=== PATIENT | female | born 1990 | race Caucasian/White ===

== ENCOUNTER 2019-01-14 11:33 | Inpatient (IN) ==
[2019-01-14 12:24] LABS: Basophils % 0.3 %; Eosinophils # 0.1 K/mcL (0.0-0.6); Eosinophils % 0.9 %; Hematocrit 36.2 % (35.3-44.9); Hemoglobin 11.9 g/dL (11.5-15.4); Immature Granulocytes % 1.1 % (0-4); Lymphocytes % 17.6 %; Mean Corpuscular HGB Conc 32.9 g/dL (31.6-35.5); Mean Corpuscular Hemoglobin 28.6 pg (28.0-33.3); Mean Platelet Volume 10.8 fL (9.4-12.4); Monocytes # 0.8 K/mcL (0.0-1.3); Monocytes % 7.2 %; Neutrophils # 8.2 K/mcL (1.6-8.9); Platelet Count 220 K/mcL (140-400); Red Blood Count 4.16 M/mcL (3.82-4.97); Red Cell Distribution Width 12.7 % (11.5-14.5); Segmented Neutrophils % 72.9 %
[2019-01-14 12:28] LABS: Amphetamine Screen,Urine Negative ng/mL (Cutoff=1000); Barbiturate Screen,Urine Negative ng/mL (Cutoff=200); Benzodiazepines Screen,Urine Negative ng/mL (Cutoff=200); Cannabinoid Screen,Urine Negative ng/mL (Cutoff = 50); Cocaine Screen,Urine Negative ng/mL (Cutoff= 300); Creatinine,Urine 99 mg/dL; Opiate Screen,Urine Negative ng/mL (Cutoff=300); Phencyclidine Screen,Urine Negative ng/mL (Cutoff=25); Protein/Creatinine Ratio,Urine 0.39 mg/mg (0.00-0.20)
[2019-01-14] MEDS ORDERED: *HR* Labetalol 20 MG/4 ML SYRINGE IVP ONE ×2 (12:32→18:58)
[2019-01-14 12:37] LABS: Alanine Aminotransferase 12 Units/L (7-52); Aspartate Amino Transferase 12 Units/L (13-39); BUN/Creatinine Ratio 19 (6-26); Blood Urea Nitrogen 7 mg/dL (6-20); Glucose 72 mg/dL (70-105); Lactate Dehydrogenase 129 Units/L (140-271); Uric Acid 3.2 mg/dL (2.3-7.6); eGFR For Non-African Americans > 60 (> 60)
[2019-01-14] MEDS ORDERED: NIFEdipine 10 MG CAPSULE PO ONE (12:39)
[2019-01-14] MEDS ORDERED: *HR* Nalbuphine 10 MG/ML AMPUL IVP PRN (13:54)
[2019-01-14] MEDS ORDERED: Famotidine 20 MG/2 ML VIAL IVP PRN (13:54)
[2019-01-14] MEDS ORDERED: Metoclopramide 10 MG/2 ML VIAL IVP PRN (13:54)
[2019-01-14] MEDS ORDERED: Ondansetron 4 MG/2 ML VIAL IVP PRN (13:54)
[2019-01-14] MEDS ORDERED: Penicillin G Potassium 5,000,000 UNIT in 0.9 % Sodium Chloride Mini Bag 100 ML IVPB ONE (13:54)
[2019-01-14] MEDS ORDERED: Ringers Solution, Lactated 1,000 ML IVC SCH (14:00)
[2019-01-14] MEDS ORDERED: miSOPROStol 25 MCG TABLET PO PRN (14:43)
--- NOTE | 2019-01-14 15:27 | OB/GYN History & Physical ---
Date of Encounter: 01/14/19 Time of Encounter: 15:27 Assessment and Plan (1) 37 weeks gestation of Current visit: Yes Status: Acute (2) Gestational diabetes mellitus in , insulin controlled Current visit: Yes Status: Acute Qualifiers: Trimester: third trimester Qualified Code(s): O24.414 - Gestational diabete s mellitus in , insulin controlled (3) PIH ( induced hypertension), antepartum Current visit: Yes Status: Acute Plan of care discussed with Dr. Anderson Admit to labor and delivery Nifedipine 10 mg for hypertension Induction of labor with cervical Fernandez and Cytotec Blood sugars every 4 hours until active days of labor then every hour Normal saline at 125 Nubain and epidural as desired May have epidural Anticipate History of Present Illness Chief complaint: hypertension HPI: Ms. Leblanc is a 28 year old female 37+3 weeks gestation admitted for induction of labor secondary to preeclampsia and gestational diabetes. care with Dr. Campa had elevated blood pressures today, patient with a headache for the last 3 days, with occasional visual disturbances but none today, sent to triage for evaluation and found to have elevated P/C ratio, PIH serology within normal limits. Gestational diabetic on insulin. Reports good movement, denies vaginal bleeding or leaking of fluid. Labs: A+, rubella and varicella immune, GBS positive, all other serologies negative. Blood sugar 72 Past Med Surg Social Fam HX - Past Medical History Source: patient Medical history: migraine Psychiatric history: no psych history - Past Surgical History Surgical History: no surgical history - Social History Smoking Status: Current every day smoker Packs per day: 0.5 Smokeless Tobacco Status: No Alcohol use: none Drug use: none - Family History Mother Living Status: Still Living Hx Family Cardiac Disorders: Yes Hx Family Endocrine Disorder: Yes (DM) Hx Family Neurologic Disorders: Yes (Stroke) Obstetrical History - Pregnancies : 3 Para: 2 Term: 2 : 0 Ab's: 0 Livin Medications and Allergies Flintstones 2 tab PO DAILY 12/14/18 [History] Omeprazole [PriLOSEC] 20 mg PO DAILY 12/14/18 [History] HumuLIN N 15 units SQ HS 01/14/19 [History] HumuLIN N 20 units SQ QAM 01/14/19 [History] Allergy/AdvReac Type Severity Reaction Status Date / Time No Known Allergies Allergy Verified 04/10/16 18:52 Exam - Constitutional Constitutional: well developed, well nourished, no acute distress - Neck Neck exam: full ROM - Lungs Respiratory exam: CTAB - Cardiovascular Cardiovascular exam: RRR - Abdomen Abdomen: Present: gravid, non tender - Extremities Extremities exam: normal capillary refill, normal inspection Deep Tendon Reflex Grade: 2+ Normal - Cervix Dilation: 2 Effacement: 50 Station: -2 Results Result Diagrams: 01/14/19 11:45 01/14/19 11:45 Abnormal lab results WBC 11.3 K/mcL (4.3-11.1) H 01/14/19 11:45 Creatinine 0.37 mg/dL (0.60-1.20) L 01/14/19 11:45 AST 12 Units/L (13-39) L 01/14/19 11:45 Lactate Dehydrogenase 129 Units/L (140-271) L 01/14/19 11:45 Protein/Creatinin Ratio 0.39 mg/mg (0.00-0.20) H 01/14/19 11:45 Urine Total Protein 39 mg/dL (1-14) H 01/14/19 11:45 All other labs normal. - VTE Reasons for not Prescribing Prophylaxis: Treatment not Indicated - Low risk for VTE
[2019-01-14] MEDS ORDERED: 0.9 % Sodium Chloride 1,000 ML ONE (15:40)
[2019-01-14] MEDS ORDERED: 0.9 % Sodium Chloride 1,000 ML IVC SCH ×2 (15:45→19:10)
[2019-01-14] MEDS ORDERED: Penicillin G Potassium 2,500,000 UNIT in 0.9 % Sodium Chloride 100 ML IVPB SCH (16:00)
[2019-01-14] MEDS: Penicillin G Potassium 2,500,000 UNIT in 0.9 % Sodium Chloride 100 ML IVPB SCH ×2 (18:50→23:23)
[2019-01-14] MEDS ORDERED: Calcium Gluconate 1,000 MG/10 ML VIAL IVPB PRN (18:56)
[2019-01-14] MEDS ORDERED: *HR* Labetalol 20 MG/4 ML SYRINGE IVP PRN (18:56)
[2019-01-14] MEDS ORDERED: Bupivacaine-MPF 0.25% 10 ML VIAL EP ONE (19:34)
[2019-01-14] MEDS ORDERED: *HR* FentaNYL (PF) 100 MCG/2 ML VIAL EP ONE (19:34)
[2019-01-14] MEDS ORDERED: Lidocaine -MPF 1% 5 ML AMPUL ONE (19:42)
[2019-01-14] MEDS ORDERED: Epidural Premix (fent/bupiv) 110 ML EP SCH (19:45)
--- NOTE | 2019-01-14 19:55 | OB Labor Progress Note ---
Date of Encounter: 01/14/19 Time of Encounter: 19:52 Labor Progress Note - Subjective Subjective: feelng increasing contractions - Vital Signs Vital Signs: 180/99 157/112 - Heart Tones Heart Tones: 140/moderate/+accels/-decels - Plan Physician notified: Yes Plan: Discussed with Dr. Anderson, now pre-e with severe range pressures and features Start Magnesium 4gm/2gm Labatelol IV PCN for GBS Nuabin and epidural as desired Glucose q4 until active phase then q1 Anticipate Care of patient transferred to Dr. Anderson at this time.
--- NOTE | 2019-01-14 19:56 | Anesthesia Evaluation PreOp ---
Date of Encounter: 01/14/19 Time of Encounter: 19:54 - Past History Planned Operation: TERRANCE Cardiac History: HTN (PIH--uncontrolled) Pulmonary History: Smoker (1/2ppd), Pack/yr (4) [employer]ESS DEVELOPMENT ENGINEER History: Denies Any Significant HX Other Medical History: Diabetes Type II (gestational DM on daily insulin tx) Anesthesia History: No Prior Anesthetic Complications (denies family h/o GA c omplications), Past Anesthesia (TERRANCE x 2--no complications; never had GA) : Yes Alcohol Use: none Drug use: none Medications and Allergies Flintstones 2 tab PO DAILY 12/14/18 [History] Omeprazole [PriLOSEC] 20 mg PO DAILY 12/14/18 [History] HumuLIN N 15 units SQ HS 01/14/19 [History] HumuLIN N 20 units SQ QAM 01/14/19 [History] Allergy/AdvReac Type Severity Reaction Status Date / Time No Known Allergies Allergy Verified 04/10/16 18:52 - Meds/Allergy Pre-op Review Medications Reviewed: Yes Allergies Reviewed: Yes Beta Blockers on Current Med List: No Anesthesia Results - Labs 01/14/19 11:45 01/14/19 11:45 Anesthesia Exam 180/99, HR 87 O2 Sat Height 1.57 m Weight 106 kg NPO (# of Hours): solids > 8hrs Pain Scale: 3 Pain Scale Used: Numeric (1 - 10) - HEENT Pupil (Motor): Pupils equal Mallampati: II Teeth: Normal Oral Opening: Greater than 3 - BIOPROCESS DEVELOPMENT ENGINEER LOC: Oriented [employer]OPROCESS DEVELOPMENT ENGINEER Motor: Normal RUE, Normal LUE, Normal RLE, Normal LLE, Normal Face [employer]ESS DEVELOPMENT ENGINEER Sensory: Normal: RUE, LUE, RLE, LLE, Face - Cardiac Rhythm: Regular Murmur: None - Pulmonary Breath Sounds: bilateral Clear Respiratory Effort: Symmetrical Anesthesia Assess/Plan ASA Score: 3 (BMI > 40, uncontrolled HTN, smoker, gestDM) Level of consciousness: Cooperative, Oriented, Tranquil Anesthetic Plan: Epidural Autologous Blood: No Monitoring Plan: Standard Monitors
[2019-01-14] MEDS ORDERED: Oxytocin 20 units/ LR 1000 mL 20 UNIT/1,000 ML BAG IVC ONE (20:26)
[2019-01-14] MEDS ORDERED: Oxytocin 20 units/ LR 1000 mL 20 UNIT/1,000 ML BAG IVC SCH (20:30)
[2019-01-14] MEDS: Magnesium Sulfate 20 gm/500mL 20 GM/500 ML IV.SOLN IVC SCH (20:33)
[2019-01-14] MEDS ORDERED: *HR* Phenylephrine 10 MG/ML VIAL ONE (22:54)
--- NOTE | 2019-01-14 23:02 | Anesthesia Procedures ---
Date of Encounter: 01/14/19 Time of Encounter: 22:59 Procedures: Anesthesia - Epidural/Spinal Patient ID/Chart reviewed: Yes Patient examined: Yes OB Eval: Gestational age: 37 weeks 3 days OB Eval: : 3 OB Eval: Hx Para: 2 OB Eval: Dilated at (cm): 3 OB Eval: Contractions: Non-stressed pattern Consent Obtained: Yes Supplemental Oxygen: None/Room Air Site Prep: Aseptic Technique, Sterile prep and drape, Povidone-Iodine 1% Patient position: upright Local Anesthetic: Lidocaine 1% Amount of Local Anesthetic used: 3 Touhy Needle Gauge: 18 Touhy Needle Depth (cm): 5 Catheter Depth at Skin (cm): 11 Test Dose (1.5% Lido + Epi): Volume given (mls): 5 Test Dose Result: Negative Loading Dose: 0.25% Marcaine (mls): 5 Loading Dose: Fentanyl (mcg): 100 Loading Dose Administered: Thru Catheter Infusion Med: 0.125% Bupivacaine w/ 2 mcg/ml Fentanyl Infusion Rate (mls/hr): 14 (w/ demand bolus of 5mL q30min PRN) Catheter Secured in Place: Tegaderm, Tape Interspace Used: L4-L5 Loss of Resistance (NORBERTO): Yes Blood: No CSF: No Paresthesia: No Procedure: successful x 1st attempt; patient tolerated procedure well; hypotension following loading dose managed with phenylephrine boluses Vitals + FHT's: see Shabana GARDNER's electronic records for VS entry
[2019-01-14] MEDS ORDERED: EPHEDrine 50 MG/ML VIAL ONE (23:42)
[2019-01-15] MEDS: Penicillin G Potassium 2,500,000 UNIT in 0.9 % Sodium Chloride 100 ML IVPB SCH (03:43)
--- NOTE | 2019-01-15 06:01 | OB/GYN Progress Note ---
Date of Encounter: 01/15/19 Time of Encounter: 05:58 Subjective - Subjective Principal diagnosis: Pre-Eclampsia with Severe Features Objective - Latest Vital Signs Latest vital signs: Intake and Output 01/14/19 01/14/19 01/15/19 15:59 23:59 07:59 Intake Total 100 / 100 100 / 100 Balance 100 / 100 100 / 100 Intake: IV Fluids 100 / 100 100 / 100 Pfizerpen 2,500,000 UNIT In 0.9 100 / 100 100 / 100 % Sodium Chloride 100 ML @ 100 mls/hr IVPB Q4H PENDING SALE TO [facility] Rx#: [id number] Other: Weight 106 kg Blood Glucose* 88 101 - Labs Labs: Laboratory Results - last 24 hr 01/14/19 01/14/19 01/14/19 11:45 11:45 11:45 WBC 11.3 H RBC 4.16 Hgb 11.9 Hct 36.2 MCV 87.0 MCH 28.6 MCHC 32.9 RDW 12.7 Plt Count 220 MPV 10.8 Immature Gran % 1.1 Seg Neutrophils % 72.9 Lymphocytes % 17.6 Monocytes % 7.2 Eosinophils % 0.9 Basophils % 0.3 Neutrophils # 8.2 Lymphocytes # 2.0 Monocytes # 0.8 Eosinophils # 0.1 Basophils # 0.0 BUN 7 Creatinine 0.37 L Est GFR ( Amer) > 60 Est GFR (Non-Af Amer) > 60 BUN/Creatinine Ratio 19 Glucose 72 POC Glucose Uric Acid 3.2 AST 12 L ALT 12 Lactate Dehydrogenase 129 L Urine Creatinine 99 Protein/Creatinin Ratio 0.39 H Urine Total Protein 39 H Urine Opiates Screen Negative Ur Barbiturates Screen Negative Ur Phencyclidine Scrn Negative Ur Amphetamines Screen Negative U Benzodiazepines Scrn Negative Urine Cocaine Screen Negative U Marijuana (THC) Screen Negative Ur Drug Screen Interp See Below 01/14/19 01/14/19 01/15/19 15:54 20:04 00:07 WBC RBC Hgb Hct MCV MCH MCHC RDW Plt Count MPV Immature Gran % Seg Neutrophils % Lymphocytes % Monocytes % Eosinophils % Basophils % Neutrophils # Lymphocytes # Monocytes # Eosinophils # Basophils # BUN Creatinine Est GFR ( Amer) Est GFR (Non-Af Amer) BUN/Creatinine Ratio Glucose POC Glucose 72 88 88 Uric Acid AST ALT Lactate Dehydrogenase Urine Creatinine Protein/Creatinin Ratio Urine Total Protein Urine Opiates Screen Ur Barbiturates Screen Ur Phencyclidine Scrn Ur Amphetamines Screen U Benzodiazepines Scrn Urine Cocaine Screen U Marijuana (THC) Screen Ur Drug Screen Interp 01/15/19 04:00 WBC RBC Hgb Hct MCV MCH MCHC RDW Plt Count MPV Immature Gran % Seg Neutrophils % Lymphocytes % Monocytes % Eosinophils % Basophils % Neutrophils # Lymphocytes # Monocytes # Eosinophils # Basophils # BUN Creatinine Est GFR ( Amer) Est GFR (Non-Af Amer) BUN/Creatinine Ratio Glucose POC Glucose 101 H Uric Acid AST ALT Lactate Dehydrogenase Urine Creatinine Protein/Creatinin Ratio Urine Total Protein Urine Opiates Screen Ur Barbiturates Screen Ur Phencyclidine Scrn Ur Amphetamines Screen U Benzodiazepines Scrn Urine Cocaine Screen U Marijuana (THC) Screen Ur Drug Screen Interp
--- NOTE | 2019-01-15 06:03 | OB/GYN Procedure Note ---
Delivery - Delivery Date: 01/15/19 Provider: Kat Anderson Intrapartum events: none Delivery induction: velazquez, misoprostol Delivery augmentation: rupture of membranes, pitocin Delivery monitor: external FHT, external uterine Anesthesia: epidural Quantitated Blood Loss: 450 - (s) A Delivery Date: 01/15/19 Delivery Time: 05:03 Presentation: vertex Position: OA Route of delivery: Gender: Male Viability: Viable Pounds: 7 Ounces: 7 at 1 minute: 8 at 5 mins: 9 Shoulder Dystocia: not encountered Specimens collected: cord blood Placenta: spontaneous - Repair Episiotomy: none Laceration Description: Periurethral (left) - Complications Delivery complications: uterine atony (250mcg of Hemabate given x once) Delivery comments: The patient progressed to complete with epidural anesthesia. She pushed to deliver a live male over an intact perineum. The head delivered in AO position. A nuchal cord was not identified. The left anterior shoulder delivered with ease followed by the rest of the body. The was safely transferred to the maternal abdomen for further care by RN and mother-baby skin to skin time. After pulsation of the umbilical cord had ceased, the cord was clamped 2 and cut by the father. Cord blood was collected and sent for routine testing. The placenta was expressed intact and held for possible testing. The cervix, vagina and perineum were inspected. A hemostatic left periurethral laceration was noted and not repaired. No need for suture repair. The uterus was boggy, despite oxytocin infusion, and a single dose of 250mcg of Hemobate was given. APGARS 8/9. Weight 7# 7oz. EBL was [address] Anderson was present for delivery. - Disposition Mom disposition: stable in LDR disposition: stable in LDR - Comments Comments: Pt uncertain whether she wants to have baby boy circumcised.
[2019-01-15] MEDS: Magnesium Sulfate 20 gm/500mL 20 GM/500 ML IV.SOLN IVC SCH ×2 (06:58→16:46)
[2019-01-15] MEDS ORDERED: Dextrose Gel 15 GM/37.5 ML TUBE PO PRN ×2 (08:34)
[2019-01-15] MEDS ORDERED: Calcium Gluconate 1,000 MG/10 ML VIAL IVPB PRN (08:34)
[2019-01-15] MEDS ORDERED: Oxytocin 20 units/ LR 1000 mL 20 UNIT/1,000 ML BAG IVC SCH (08:34)
[2019-01-15] MEDS ORDERED: D5% in Water 1,000 ML IVC PRN (08:34)
[2019-01-15] MEDS ORDERED: *HR* Dextrose 50 % in Water (Syg) 50 ML SYRINGE IVP PRN (08:34)
[2019-01-15] MEDS ORDERED: Ketorolac 30 MG/ML VIAL IVP PRN (08:34)
[2019-01-15] MEDS ORDERED: *HR* Labetalol 20 MG/4 ML SYRINGE IVP PRN (08:34)
[2019-01-15] MEDS: Acetaminophen 325 MG TABLET PO SCH (12:02)
[2019-01-15] MEDS: Insulin LISPRO 300 UNITS/3 ML VIAL SQ PRN ×2 (12:02→15:05)
[2019-01-15] MEDS: Prenatal Vit/FA 1 EACH TABLET PO SCH (12:02)
[2019-01-16] MEDS: Acetaminophen 325 MG TABLET PO SCH ×2 (00:13→07:38)
[2019-01-16] MEDS: Magnesium Sulfate 20 gm/500mL 20 GM/500 ML IV.SOLN IVC SCH (02:00)
[2019-01-16] MEDS: Prenatal Vit/FA 1 EACH TABLET PO SCH (07:38)
[2019-01-16 08:58] LABS: Basophils % 0.4 %; Eosinophils # 0.1 K/mcL (0.0-0.6); Eosinophils % 1.1 %; Hematocrit 31.1 % (35.3-44.9); Immature Granulocytes % 1.2 % (0-4); Lymphocytes # 2.1 K/mcL (0.6-4.6); Lymphocytes % 18.6 %; Mean Corpuscular HGB Conc 32.2 g/dL (31.6-35.5); Mean Corpuscular Hemoglobin 28.2 pg (28.0-33.3); Mean Corpuscular Volume 87.9 fL (83.0-100.0); Monocytes # 0.8 K/mcL (0.0-1.3); Monocytes % 7.2 %; Platelet Count 189 K/mcL (140-400); Red Blood Count 3.54 M/mcL (3.82-4.97); Red Cell Distribution Width 12.8 % (11.5-14.5); Segmented Neutrophils % 71.5 %
[2019-01-16 09:19] LABS: Alanine Aminotransferase 14 Units/L (7-52); Aspartate Amino Transferase 16 Units/L (13-39); BUN/Creatinine Ratio 20 (6-26); Blood Urea Nitrogen 9 mg/dL (6-20); Lactate Dehydrogenase 197 Units/L (140-271); Uric Acid 4.3 mg/dL (2.3-7.6); eGFR For Non-African Americans > 60 (> 60)
--- NOTE | 2019-01-16 09:31 | OB/GYN Progress Note ---
Date of Encounter: 01/16/19 Time of Encounter: 09:26 - Assessment and Plan (1) Vaginal delivery Current Visit: Yes Status: Acute Continue routine vaginal delivery Meeting appropriate milestones Anticipate discharge home tomorrow (2) Pre-eclampsia Current Visit: Yes Status: Acute Continue to monitor BP and labs Anticipate discharge home tomorrow Qualifiers: Trimester: third trimester Qualified Code(s): O14.93 - Unspecified pre- eclampsia, third trimester (3) Gestational diabetes mellitus (GDM) requiring insulin Current Visit: Yes Status: Acute Fasting and 2 hour PP FSBS Will need 2 hour GTT Subjective - Subjective Principal diagnosis: S/P vaginal delivery; Pre-E Interval history: S/P Vaginal delivery day 1 Pain is well controlled Lochia light and without clots Blood pressure ranges 120-140's/70-90's; will continue to monitor, no antihypertensives at this time Pre-E labs WNL this AM; repeat tomorrow AM Blood sugars within normal ranges Voiding without difficulty Passing flatus and tolerating regular diet Breast and bottle feeding Anticipate discharge home tomorrow POC per consult with Dr Rodriguez Patient reports: appetite normal, voiding normally, pain well controlled, ambulating normally [place]: doing well, nursing well (working with ; difficulty at breast), bottle feeding Objective - Latest Vital Signs Latest vital signs: Vital Signs Temp Pulse Pulse Resp BP Pulse Ox 01/16/19 08:02 14 01/16/19 07:45 98.1 F 90 18 141/92 98 01/16/19 05:20 84 18 135/77 01/16/19 03:55 87 16 137/85 01/16/19 02:45 86 16 142/81 01/16/19 01:45 79 16 119/63 01/16/19 00:45 78 16 135/78 01/15/19 23:45 83 16 146/83 01/15/19 22:45 90 16 151/95 01/15/19 21:45 97 16 142/94 01/15/19 20:55 97.5 F L 94 14 129/86 95 01/15/19 20:45 94 14 129/86 01/15/19 19:45 97.5 F L 93 93 16 142/87 97 01/15/19 18:42 88 16 136/95 01/15/19 17:37 90 16 140/83 01/15/19 16:40 93 16 133/92 01/15/19 15:30 93 16 144/88 01/15/19 14:30 91 16 136/86 01/15/19 13:25 95 16 134/83 01/15/19 12:25 96 16 143/88 01/15/19 11:20 97 16 142/88 01/15/19 10:20 94 16 143/92 96 Intake and Output 01/15/19 01/16/19 01/16/19 23:59 07:59 15:59 Intake Total 815 / 815 120 / 120 Output Total 1400 / 1400 300 / 300 Balance -1400 / -1400 515 / 515 120 / 120 Intake: IV Fluids 575 / 575 Magnesium Sulfate Premix 20 gm/ 575 / 575 500mL 20 gm In 500 ml @ 2 GM/HR 50 mls/hr IVC .Q10H AMELIE Rx#: [id number] Oral 240 / 240 120 / 120 Output: Urine 1400 / 1400 300 / 300 Other: Meal Breakfast Percent of Meal Consumed 90% Weight 101.877 kg 101.2 kg Blood Glucose* 139 92 Patient Weight 01/16/19 23:59 Weight 101.2 kg - Exam Lungs: bilateral: normal Chest: Normal S1, Normal S2 Extremities: Present: normal Abdomen: Present: normal appearance, soft, gravid Uterus: Present: normal, firm Uterus Position: At Umbilicus, Midline Comments: BLE edema 1-2+ - Labs Labs: Laboratory Results - last 24 hr 01/14/19 01/15/19 01/15/19 11:45 11:44 14:57 WBC RBC Hgb Hct MCV MCH MCHC RDW Plt Count MPV Immature Gran % Seg Neutrophils % Lymphocytes % Monocytes % Eosinophils % Basophils % Neutrophils # Lymphocytes # Monocytes # Eosinophils # Basophils # BUN Creatinine Est GFR ( Amer) Est GFR (Non-Af Amer) BUN/Creatinine Ratio POC Glucose 151 H 142 H Uric Acid AST ALT Lactate Dehydrogenase Urine Opiates Screen TNP Ur Barbiturates Screen TNP Ur Phencyclidine Scrn TNP Ur Amphetamines Screen TNP U Benzodiazepines Scrn TNP Urine Cocaine Screen TNP U Marijuana (THC) Screen TNP Ur Drug Screen Interp TNP 01/15/19 01/16/19 01/16/19 20:54 07:45 08:23 WBC 11.1 RBC 3.54 L Hgb 10.0 L D Hct 31.1 L MCV 87.9 MCH 28.2 MCHC 32.2 RDW 12.8 Plt Count 189 MPV 11.0 Immature Gran % 1.2 Seg Neutrophils % 71.5 Lymphocytes % 18.6 Monocytes % 7.2 Eosinophils % 1.1 Basophils % 0.4 Neutrophils # 8.0 Lymphocytes # 2.1 Monocytes # 0.8 Eosinophils # 0.1 Basophils # 0.0 BUN Creatinine Est GFR ( Amer) Est GFR (Non-Af Amer) BUN/Creatinine Ratio POC Glucose 139 H 92 Uric Acid AST ALT Lactate Dehydrogenase Urine Opiates Screen Ur Barbiturates Screen Ur Phencyclidine Scrn Ur Amphetamines Screen U Benzodiazepines Scrn Urine Cocaine Screen U Marijuana (THC) Screen Ur Drug Screen Interp 01/16/19 08:23 WBC RBC Hgb Hct MCV MCH MCHC RDW Plt Count MPV Immature Gran % Seg Neutrophils % Lymphocytes % Monocytes % Eosinophils % Basophils % Neutrophils # Lymphocytes # Monocytes # Eosinophils # Basophils # BUN 9 Creatinine 0.46 L Est GFR ( Amer) > 60 Est GFR (Non-Af Amer) > 60 BUN/Creatinine Ratio 20 POC Glucose Uric Acid 4.3 AST 16 ALT 14 Lactate Dehydrogenase 197 Urine Opiates Screen Ur Barbiturates Screen Ur Phencyclidine Scrn Ur Amphetamines Screen U Benzodiazepines Scrn Urine Cocaine Screen U Marijuana (THC) Screen Ur Drug Screen Interp
[2019-01-16] MEDS ORDERED: Ipratropium/Albuterol Neb 3 ML IH STA (16:55)
[2019-01-16] MEDS ORDERED: Ipratropium/Albuterol Neb 3 ML IH PRN (18:52)
[2019-01-17 04:33] LABS: Basophils # 0.1 K/mcL (0.0-0.2); Basophils % 0.5 %; Eosinophils # 0.2 K/mcL (0.0-0.6); Eosinophils % 1.8 %; Hematocrit 30.6 % (35.3-44.9); Immature Granulocytes % 1.7 % (0-4); Lymphocytes # 2.4 K/mcL (0.6-4.6); Lymphocytes % 23.9 %; Mean Corpuscular HGB Conc 32.7 g/dL (31.6-35.5); Mean Corpuscular Hemoglobin 29.2 pg (28.0-33.3); Mean Corpuscular Volume 89.2 fL (83.0-100.0); Mean Platelet Volume 10.5 fL (9.4-12.4); Monocytes # 0.8 K/mcL (0.0-1.3); Monocytes % 7.9 %; Neutrophils # 6.3 K/mcL (1.6-8.9); Platelet Count 202 K/mcL (140-400); Red Blood Count 3.43 M/mcL (3.82-4.97); Segmented Neutrophils % 64.2 %
[2019-01-17 04:52] LABS: Alanine Aminotransferase 14 Units/L (7-52); Aspartate Amino Transferase 12 Units/L (13-39); BUN/Creatinine Ratio 23 (6-26); Blood Urea Nitrogen 10 mg/dL (6-20); Lactate Dehydrogenase 156 Units/L (140-271); Uric Acid 4.7 mg/dL (2.3-7.6); eGFR For Non-African Americans > 60 (> 60)
[2019-01-17] MEDS: Prenatal Vit/FA 1 EACH TABLET PO SCH (08:44)
--- NOTE | 2019-01-17 14:09 | Discharge Summary ---
Date of Encounter: 01/17/19 Time of Encounter: 14:07 - Discharge Diagnosis (1) Vaginal delivery Priority: Primary Status: Acute Comments: 28yo female delivered on 01/16. Plan for discharge to home today as patient is meeting all milestones. Baby doing well. Minimal bleeding. Voiding independently. Ambulating independently. Pain controlled with po medication. ALl questions/concerns answered prior to discharge to home with baby. Will f/u with OBGYN at pP visit. MD MARYA - Discharge Medications Prescriptions: New Ondansetron HCl [Zofran] 4 mg PO Q8HR PRN 10 Days #15 tab PRN Reason: Nausea Ibuprofen 200 mg PO PRN PRN 10 Days #20 tablet PRN Reason: Pain No Action Omeprazole [PriLOSEC] 20 mg PO DAILY [place]stones 2 tab PO DAILY HumuLIN N 20 units SQ QAM HumuLIN N 15 units SQ HS Home Medications: Flintstones 2 tab PO DAILY 12/14/18 [History] Omeprazole [PriLOSEC] 20 mg PO DAILY 12/14/18 [History] HumuLIN N 15 units SQ HS 01/14/19 [History] HumuLIN N 20 units SQ QAM 01/14/19 [History] Ibuprofen 200 mg PO PRN PRN 10 Days #20 tablet 01/17/19 [Rx] Ondansetron HCl [Zofran] 4 mg PO Q8HR PRN 10 Days #15 tab 01/17/19 [Rx] Allergies/Adverse Reactions: Allergy/AdvReac Type Severity Reaction Status Date / Time No Known Allergies Allergy Verified 04/10/16 18:52 Data Procedures and tests throughout hospitalization: Laboratory Tests 01/14/19 01/14/19 01/14/19 11:45 11:45 11:45 WBC 11.3 H RBC 4.16 Hgb 11.9 Hct 36.2 MCV 87.0 MCH 28.6 MCHC 32.9 RDW 12.7 Plt Count 220 MPV 10.8 Immature Gran % 1.1 Seg Neutrophils % 72.9 Lymphocytes % 17.6 Monocytes % 7.2 Eosinophils % 0.9 Basophils % 0.3 Neutrophils # 8.2 Lymphocytes # 2.0 Monocytes # 0.8 Eosinophils # 0.1 Basophils # 0.0 BUN 7 Creatinine 0.37 L Est GFR ( Amer) > 60 Est GFR (Non-Af Amer) > 60 BUN/Creatinine Ratio 19 Glucose 72 POC Glucose Uric Acid 3.2 AST 12 L ALT 12 Lactate Dehydrogenase 129 L Urine Creatinine 99 Protein/Creatinin Ratio 0.39 H Urine Total Protein 39 H Urine Opiates Screen Negative Ur Barbiturates Screen Negative Ur Phencyclidine Scrn Negative Ur Amphetamines Screen Negative U Benzodiazepines Scrn Negative Urine Cocaine Screen Negative U Marijuana (THC) Screen Negative Ur Drug Screen Interp See Below 01/14/19 01/14/19 01/14/19 11:45 15:54 20:04 WBC RBC Hgb Hct MCV MCH MCHC RDW Plt Count MPV Immature Gran % Seg Neutrophils % Lymphocytes % Monocytes % Eosinophils % Basophils % Neutrophils # Lymphocytes # Monocytes # Eosinophils # Basophils # BUN Creatinine Est GFR ( Amer) Est GFR (Non-Af Amer) BUN/Creatinine Ratio Glucose POC Glucose 72 88 Uric Acid AST ALT Lactate Dehydrogenase Urine Creatinine Protein/Creatinin Ratio Urine Total Protein Urine Opiates Screen TNP Ur Barbiturates Screen TNP Ur Phencyclidine Scrn TNP Ur Amphetamines Screen TNP U Benzodiazepines Scrn TNP Urine Cocaine Screen TNP U Marijuana (THC) Screen TNP Ur Drug Screen Interp TNP 01/15/19 01/15/19 01/15/19 00:07 04:00 08:47 WBC RBC Hgb Hct MCV MCH MCHC RDW Plt Count MPV Immature Gran % Seg Neutrophils % Lymphocytes % Monocytes % Eosinophils % Basophils % Neutrophils # Lymphocytes # Monocytes # Eosinophils # Basophils # BUN Creatinine Est GFR ( Amer) Est GFR (Non-Af Amer) BUN/Creatinine Ratio Glucose POC Glucose 88 101 H 131 H Uric Acid AST ALT Lactate Dehydrogenase Urine Creatinine Protein/Creatinin Ratio Urine Total Protein Urine Opiates Screen Ur Barbiturates Screen Ur Phencyclidine Scrn Ur Amphetamines Screen U Benzodiazepines Scrn Urine Cocaine Screen U Marijuana (THC) Screen Ur Drug Screen Interp 01/15/19 01/15/19 01/15/19 11:44 14:57 20:54 WBC RBC Hgb Hct MCV MCH MCHC RDW Plt Count MPV Immature Gran % Seg Neutrophils % Lymphocytes % Monocytes % Eosinophils % Basophils % Neutrophils # Lymphocytes # Monocytes # Eosinophils # Basophils # BUN Creatinine Est GFR ( Amer) Est GFR (Non-Af Amer) BUN/Creatinine Ratio Glucose POC Glucose 151 H 142 H 139 H Uric Acid AST ALT Lactate Dehydrogenase Urine Creatinine Protein/Creatinin Ratio Urine Total Protein Urine Opiates Screen Ur Barbiturates Screen Ur Phencyclidine Scrn Ur Amphetamines Screen U Benzodiazepines Scrn Urine Cocaine Screen U Marijuana (THC) Screen Ur Drug Screen Interp 01/16/19 01/16/19 01/16/19 07:45 08:23 08:23 WBC 11.1 RBC 3.54 L Hgb 10.0 L D Hct 31.1 L MCV 87.9 MCH 28.2 MCHC 32.2 RDW 12.8 Plt Count 189 MPV 11.0 Immature Gran % 1.2 Seg Neutrophils % 71.5 Lymphocytes % 18.6 Monocytes % 7.2 Eosinophils % 1.1 Basophils % 0.4 Neutrophils # 8.0 Lymphocytes # 2.1 Monocytes # 0.8 Eosinophils # 0.1 Basophils # 0.0 BUN 9 Creatinine 0.46 L Est GFR ( Amer) > 60 Est GFR (Non-Af Amer) > 60 BUN/Creatinine Ratio 20 Glucose POC Glucose 92 Uric Acid 4.3 AST 16 ALT 14 Lactate Dehydrogenase 197 Urine Creatinine Protein/Creatinin Ratio Urine Total Protein Urine Opiates Screen Ur Barbiturates Screen Ur Phencyclidine Scrn Ur Amphetamines Screen U Benzodiazepines Scrn Urine Cocaine Screen U Marijuana (THC) Screen Ur Drug Screen Interp 01/16/19 01/16/19 01/16/19 10:02 14:18 20:26 WBC RBC Hgb Hct MCV MCH MCHC RDW Plt Count MPV Immature Gran % Seg Neutrophils % Lymphocytes % Monocytes % Eosinophils % Basophils % Neutrophils # Lymphocytes # Monocytes # Eosinophils # Basophils # BUN Creatinine Est GFR ( Amer) Est GFR (Non-Af Amer) BUN/Creatinine Ratio Glucose POC Glucose 110 H 96 83 Uric Acid AST ALT Lactate Dehydrogenase Urine Creatinine Protein/Creatinin Ratio Urine Total Protein Urine Opiates Screen Ur Barbiturates Screen Ur Phencyclidine Scrn Ur Amphetamines Screen U Benzodiazepines Scrn Urine Cocaine Screen U Marijuana (THC) Screen Ur Drug Screen Interp 01/17/19 01/17/19 04:19 04:19 WBC 9.9 RBC 3.43 L Hgb 10.0 L Hct 30.6 L MCV 89.2 MCH 29.2 MCHC 32.7 RDW 13.0 Plt Count 202 MPV 10.5 Immature Gran % 1.7 Seg Neutrophils % 64.2 Lymphocytes % 23.9 Monocytes % 7.9 Eosinophils % 1.8 Basophils % 0.5 Neutrophils # 6.3 Lymphocytes # 2.4 Monocytes # 0.8 Eosinophils # 0.2 Basophils # 0.1 BUN 10 Creatinine 0.44 L Est GFR ( Amer) > 60 Est GFR (Non-Af Amer) > 60 BUN/Creatinine Ratio 23 Glucose POC Glucose Uric Acid 4.7 AST 12 L ALT 14 Lactate Dehydrogenase 156 Urine Creatinine Protein/Creatinin Ratio Urine Total Protein Urine Opiates Screen Ur Barbiturates Screen Ur Phencyclidine Scrn Ur Amphetamines Screen U Benzodiazepines Scrn Urine Cocaine Screen U Marijuana (THC) Screen Ur Drug Screen Interp Labs on day of discharge: Labs from last 24 hours 01/17/19 01/17/19 01/16/19 04:19 04:19 20:26 WBC 9.9 RBC 3.43 L Hgb 10.0 L Hct 30.6 L MCV 89.2 MCH 29.2 MCHC 32.7 RDW 13.0 Plt Count 202 MPV 10.5 Immature Gran % 1.7 Seg Neutrophils % 64.2 Lymphocytes % 23.9 Monocytes % 7.9 Eosinophils % 1.8 Basophils % 0.5 Neutrophils # 6.3 Lymphocytes # 2.4 Monocytes # 0.8 Eosinophils # 0.2 Basophils # 0.1 BUN 10 Creatinine 0.44 L Est GFR ( Amer) > 60 Est GFR (Non-Af Amer) > 60 BUN/Creatinine Ratio 23 POC Glucose 83 Uric Acid 4.7 AST 12 L ALT 14 Lactate Dehydrogenase 156 01/16/19 14:18 WBC RBC Hgb Hct MCV MCH MCHC RDW Plt Count MPV Immature Gran % Seg Neutrophils % Lymphocytes % Monocytes % Eosinophils % Basophils % Neutrophils # Lymphocytes # Monocytes # Eosinophils # Basophils # BUN Creatinine Est GFR ( Amer) Est GFR (Non-Af Amer) BUN/Creatinine Ratio POC Glucose 96 Uric Acid AST ALT Lactate Dehydrogenase Date of admission: 01/14/19 11:33 Primary care physician: Jeffrey Cabrera MD Consults: 01/15/19 08:34 Consult to Anthropologist Physical [CONS] Routine Comment: Vaginal delivery, consult needed Discharging clinician: Angelita Chandler Anticipated date of discharge: 01/17/19 - Patient Status Disposition: Home, Self-Care Condition: Good Functional capacity at discharge: independent ambulation Overall status at discharge: patient is progressing back to baseline - Discharge Instructions Follow Up With: Jeffrey Cabrera MD [Primary Care Provider] - - Diet and Activity Activity: increase activity as tolerated Diet: advance to your usual diet Hospital Course [employer] Time Attestation: Total time spent providing and/or coordinating discharge services: Exam - Constitutional Vitals: Temp Pulse Resp BP Pulse Ox 97.5 F L 90 16 134/91 95 01/17/19 08:39 01/17/19 08:39 01/17/19 08:39 01/17/19 08:39 01/17/19 08:39 General appearance IM: A&O X 0 - Respiratory Respiratory exam: Present: CTAB - Cardiovascular Cardiovascular exam IM: Present: RRR - GI/Abdominal Incision: normal, dry, intact - Extremities Exam Extremities exam IM: Present: full ROM - Neurological Exam Neurological exam: CN II-XII intact - VTE Reasons for not Prescribing Prophylaxis: Treatment not Indicated - Low risk for VTE Documentation of Mechanical Device: Intermittent pneumatic compression device
[2019-01-18 10:08] VITALS: BP 99/62
== END 2019-01-17 15:30 | disposition home or self-care (01) | DRG 560 ==
LOC: 1NENULAB → OBSVTOIN 11:33 → 1NENULAB 12:33 → 1NENUOBS 01-15 08:21
PROVIDERS: ADMIT Advanced Practice Midwife; ATTEND Advanced Practice Midwife